=== PATIENT | male | born 1975 | race Caucasian/White ===

== ENCOUNTER → 2019-02-25 | Outpatient (CLI) | payer BC, OTHER ==
[2014-08-25 08:52] VITALS: BP 124/58
[~2019-02-25] MED LIST: ALPR2TAB5 PO; OXYC1TAB15 PO
--- NOTE | 2019-02-25 11:44 | KCIC ---
MRI Lumbar Spine without contrast History: Chronic low back pain Technique: Multiplanar, multi sequential noncontrast MR imaging was performed of the lumbar spine. Comparison: None Findings: There is mild motion. Lumbar vertebral body stature and AP alignment are overall maintained. There is no significant marrow edema. Intervertebral disc spaces are preserved. Conus terminates near L1, not included on axial images. L1-L2, L2-3: Neural foramina and spinal canal are adequate, these levels not included on the axial images. L3-L4: There is anterior annular tear. Spinal canal and neural foramina are adequate. L4-L5: There is negligible disc osteophyte complex and bulge. Spinal canal and the neural foramina are adequate. L5-S1: There is mild prominence of epidural fat in the lateral recesses bilaterally, some preserved central subarachnoid space. Spinal canal is overall adequate. There is mild extradural heterogeneity such as posterior to the L5 and L4 vertebral bodies and in the lateral recesses greater on the left, uncertain if due to underlying incidentally more prominent vessels, no masslike features. Neural foramina are not significantly narrowed. Impression: 1. There is no significant lumbar spinal stenosis or neural foramina compromise. There is mild nonspecific extradural heterogeneity such as posterior to the L4 and L5 vertebral bodies and in the lateral recesses greater on the left at L5-S1, may be due to incidentally more prominent vessels/venous plexus, no masslike features. Electronically signed by: Lawrence Nick MD (02/25/2019 11:41 AM) [id number]
== END | disposition home or self-care (01) ==
LOC: KCIC MRI 10:34
PROVIDERS: ATTEND Family Medicine
DX: M51.36 Other intervertebral disc degeneration, lumbar region (principal)
CPT/HCPCS: 72148